=== PATIENT | male | born 1975 | race African-American/Black ===

== ENCOUNTER 2022-11-27 03:22 | Emergency (ER) | payer OTHER ==
[~2022-11-27] VITALS: Ht 182.9 cm; Wt 80.0 kg
[2022-11-27 03:24] VITALS: BP 125/81; PULSE 64; RESP 16; TEMP 98.4; O2SAT 100
[2022-11-27] MEDS ORDERED: LIDOCAINE HCL/PF 1% 10 MG/ML 5ML VIAL INFIL ONE (05:30)
[2022-11-27] MEDS ORDERED: TETANUS, DIPHTHERIA, PERTUSSIS VAC/PF 0.5ML (>10YR OLD) IM ONE (05:45)
== END 2022-11-27 06:37 ==
LOC: ER 03:22
DX: S01.511A Laceration without foreign body of lip, initial encounter (principal); V49.9XXA Car occupant (driver) (passenger) injured in unspecified traffic accident, initial encounter; Y93.89 Activity, other specified; Y92.89 Other specified places as the place of occurrence of the external cause; Y99.8 Other external cause status
CPT/HCPCS: 99283; 90715; 12011; 90471; J3490